=== PATIENT | female | born 1970 | race African-American/Black ===

== ENCOUNTER 2019-08-04 23:20 | Observation (INO) | payer OTHER ==
--- NOTE | 2019-08-04 23:40 | Emergency Department Report ---
<GRISELDA ARELLANO - Last Filed: 08/05/19 02:32> ED General Adult HPI - General Chief complaint: Neuro Symptoms/Deficit Stated complaint: HIGH BLOOD PRESSURE - Related Data Previous Rx's Medication Instructions Recorded Last Taken Type Aspirin [Adult Aspirin] 81 mg PO DAILY #30 tablet. 08/05/19 Unknown Rx AtorvaSTATin [Lipitor] 40 mg PO QHS #30 tablet 08/05/19 Unknown Rx Valsartan [Diovan] 40 mg PO DAILY #30 tablet 08/05/19 Unknown Rx hydroCHLOROthiazide [HCTZ] 25 mg PO QDAY #30 tablet 08/05/19 Unknown Rx Allergies Allergy/AdvReac Type Severity Reaction Status Date / Time No Known Allergies Allergy Unverified 08/04/19 23:39 ED Past Medical Hx - Medications Home Medications: Home Medications Medication Instructions Recorded Confirmed Last Taken Type Aspirin [Adult Aspirin] 81 mg PO DAILY #30 tablet. 08/05/19 Unknown Rx AtorvaSTATin [Lipitor] 40 mg PO QHS #30 tablet 08/05/19 Unknown Rx Valsartan [Diovan] 40 mg PO DAILY #30 tablet 08/05/19 Unknown Rx hydroCHLOROthiazide [HCTZ] 25 mg PO QDAY #30 tablet 08/05/19 Unknown Rx ED Medical Decision Making - Lab Data Result diagrams: 08/04/19 00:05 08/04/19 00:05 - Medical Decision Making I discussed the patient with Dr. Belcher, he agreed to admit the patient to medical service for further management. ED Disposition Clinical Impression: History of numbness, Acute chest pain, Hypertensive urgency Disposition: OP ADMIT IP TO THIS HOSP Condition: Stable <DOROTEO BRANHAM - Last Filed: 08/05/19 20:27> ED General Adult HPI - General PUI?: No Source: patient, family Mode of arrival: Ambulatory Limitations: Language Barrier - History of Present Illness Initial comments: The patient is a 49-year-old female. Her primary care doctor is Dr. Muro, with [facility]. She has a history of hypertension, and possible GERD/gastritis. Her daughter offers to translate, and the patient has indicated that she would like the daughter to translate for her. The patient presents to the ER today with a complaint of global weakness, central chest pain, upper extremity weakness, and body tingling and numbness. Apparently, she went to an outpatient urgent care center, and was referred to the emergency room for elevated blood pressure. Her last known well time is 5:00 PM on August 04, 2019 Upon arrival to this emergency room, she was being seen and evaluated by our triage nurse, who called a code stroke overhead, as the patient appeared to be globally weak, could not or would not lift her bilateral upper extremities, and required assistance holding a telephone. Her Accu-Chek was within normal limits. While in the waiting room/triage, her global weakness resolved, she was noted to be moving her 4 extremities, and walking without significant difficulty. The patient also complains of chest pressure, that started at 5:00 PM yesterday. As per her daughter translating, the pain does not radiate to the back, arms or neck. There is no description of vomiting or diaphoresis. Her daughter denies DVT and pulmonary embolism risk factors. -: hour(s) Location: chest Consistency: other Improves with: other Worsens with: other Associated Symptoms: other ED Review of Systems ROS: Stated complaint: HIGH BLOOD PRESSURE Other details as noted in HPI Constitutional: malaise. denies: fever Eyes: denies: vision change Respiratory: denies: cough Cardiovascular: chest pain Gastrointestinal: denies: abdominal pain Musculoskeletal: denies: back pain Neurological: weakness ED Physical Exam - General Limitations: Language Barrier General appearance: alert, in no apparent distress - Head Head exam: Present: atraumatic, normocephalic - Eye Eye exam: Present: normal appearance, EOMI. Absent: nystagmus - ENT ENT exam: Present: normal exam, normal orophraynx, mucous membranes moist, normal external ear exam - Neck Neck exam: Present: normal inspection, full ROM. Absent: tenderness, meningismus - Respiratory Respiratory exam: Present: normal lung sounds bilaterally. Absent: respiratory distress - Cardiovascular Cardiovascular Exam: Present: regular rate, normal rhythm, normal heart sounds. Absent: bradycardia, tachycardia, irregular rhythm, systolic murmur, diastolic murmur, rubs, gallop - GI/Abdominal GI/Abdominal exam: Present: soft, normal bowel sounds. Absent: distended, tend erness, guarding, rebound, rigid, pulsatile mass - Extremities Exam Extremities exam: Present: normal inspection, full ROM, other (2+ pulses noted in the bilateral upper and lower extremities. There is no palpable cord. negative Homans sign. Muscular compartments are soft. The pelvis is stable.). Absent: pedal edema, calf tenderness - Back Exam Back exam: Present: normal inspection, full ROM. Absent: tenderness, CVA tenderness (R), CVA tenderness (L), paraspinal tenderness, vertebral tenderness - Neurological Exam Neurological exam: Present: alert, normal gait, other (No facial droop. Tongue midline. Extraocular movements intact bilaterally. Facial sensation intact to light touch in V1, V2, V3 distribution bilaterally. 5 and a 5 strength in 4 extremities. Sensation intact to light touch in 4 extremities.). Absent: motor sensory deficit - Psychiatric Psychiatric exam: Present: anxious - Skin Skin exam: Present: warm, dry, intact, normal color. Absent: rash ED Course Vital Signs 08/04/19 08/04/19 08/05/19 23:22 23:58 00:00 Temperature 98.3 F Pulse Rate 84 87 Respiratory 18 20 16 Rate Blood Pressure 198/115 209/113 Blood Pressure [Left] O2 Sat by Pulse 98 99 Oximetry 08/05/19 08/05/19 08/05/19 00:10 00:11 00:20 Temperature 98.5 F Pulse Rate 86 79 Respiratory 20 23 Rate Blood Pressure 212/110 209/113 209/113 Blood Pressure [Left] O2 Sat by Pulse 99 99 100 Oximetry 08/05/19 08/05/19 08/05/19 01:11 01:21 01:53 Temperature Pulse Rate 74 Respiratory 14 18 12 Rate Blood Pressure 184/95 184/95 184/95 Blood Pressure [Left] O2 Sat by Pulse 98 100 99 Oximetry 08/05/19 08/05/19 08/05/19 02:00 02:11 02:27 Temperature Pulse Rate Respiratory 20 18 21 Rate Blood Pressure 184/110 209/113 184/110 Blood Pressure [Left] O2 Sat by Pulse 97 97 98 Oximetry 08/05/19 08/05/19 08/05/19 02:30 02:41 02:51 Temperature Pulse Rate Respiratory 19 21 18 Rate Blood Pressure 194/100 194/100 194/100 Blood Pressure [Left] O2 Sat by Pulse 99 99 100 Oximetry 08/05/19 08/05/19 08/05/19 03:00 03:11 03:29 Temperature 98.1 F Pulse Rate 84 Respiratory 20 27 H 18 Rate Blood Pressure 189/107 189/107 Blood Pressure 194/100 [Left] O2 Sat by Pulse 99 100 100 Oximetry - Reevaluation(s) Reevaluation #1: 08/05/19 00:34 Differential diagnosis, including but not limited to: Posterior reversible hypertensive encephalopathy, hypertensive emergency/emergency, subacute/acute stroke, TIA, aortic disease, acute coronary syndrome, pneumonia, GERD, gastritis, hiatal hernia Assessment and plan: 49-year-old female with nonspecific dysesthesia, total weakness, now resolved, GCS 15, NIH score of 0, presented more than 4.5 hours after symptom onset, therefore not a TPA candidate. NIH score of 0, therefore, not a TPA candidate. Her examination is not consistent with a large vessel occlusion. Given her complaint of nonspecific chest discomfort, an emergent CT angiogram head and neck has been ordered to exclude aortic dissection. If an aortic dissection is present, the CT angiogram neck should visualize the arch of the aorta, and demonstrates significant pathology if present. Laboratory studies ordered. EKG ordered. X-ray the chest ordered. Patient seen in conjunction with stroke neurology, Dr. Liriano, who has agreed with the aforementioned management plan, and makes similar recommendations. We think aortic dissection is unlikely at this time, there is no pulsatile abdominal mass, there is no complaint of back pain or abdominal pain, the patient has equal pulses in the upper and lower extremities. The patient does not have DVT or pulmonary embolism risk factors, she is low risk by Wells criteria. At the moment, she is perc negative Discussed plan of care with patient's daughter translating, who verbalizes understanding, she and the patient are amenable to this plan of care. Reevaluation #2: 08/05/19 01:03 X-ray the chest appears to be negative for acute disease at this time. Patient noted to be smiling and laughing with her daughter in the room Elevated TSH reviewed and appreciated. Will defer to the inpatient team to further follow this up Reevaluation #3: 08/05/19 01:38 Patient continues to rest comfortably, speaking in full sentences, walks with a steady gait, and move 4 extremities without difficulty. We requested a urine sample. The first urine sample provided was clear, and cold, suspicious for water from the tap. Went back into the room, and asked patient to provide a urine sample, and not of water sample. Then, the patient came back with a second sample, that was clear, but warm, suspicious for warm water from the tap. The patient has no CVA tenderness, and did not endorse irritative or obstructive urinary symptoms. With her nonspecific neurologic complaints and chest pain, I will defer to the inpatient team to further follow-up urinalysis, if they feel so necessary. CT angiogram head and neck pending at this time. care transferred to Dr Victorina Arellano to follow up on cta head neck, and if no acute disease noted, admit to medical service ED Medical Decision Making - Lab Data Result diagrams: 08/05/19 04:06 08/05/19 04:06 Vital Signs 08/04/19 08/05/19 23:22 00:10 Temperature 98.3 F 98.5 F Pulse Rate 84 86 Respiratory 18 20 Rate Blood Pressure 198/115 212/110 O2 Sat by Pulse 98 99 Oximetry Lab Results 08/04/19 08/04/19 08/05/19 Range/Units 00:05 00:05 00:07 WBC 13.4 H (4.5-11.0) K/mm3 RBC 4.78 (3.65-5.03) M/mm3 Hgb 13.4 (10.1-14.3) gm/dl Hct 41.1 (30.3-42.9) % MCV 86 (79-97) fl MCH 28 (28-32) pg MCHC 33 (30-34) % RDW 13.1 L (13.2-15.2) % Plt Count 296 (140-440) K/mm3 Lymph % (Auto) 16.9 (13.4-35.0) % Day % (Auto) 6.5 (0.0-7.3) % Eos % (Auto) 1.9 (0.0-4.3) % Baso % (Auto) 0.7 (0.0-1.8) % Lymph # 2.3 (1.2-5.4) K/mm3 Day # 0.9 H (0.0-0.8) K/mm3 Eos # 0.2 (0.0-0.4) K/mm3 Baso # 0.1 (0.0-0.1) K/mm3 Seg Neutrophils % 74.0 H (40.0-70.0) % Seg Neutrophils # 9.9 H (1.8-7.7) K/mm3 PT 12.3 (12.2-14.9) Sec. INR 0.90 (0.87-1.13) APTT 26.8 (24.2-36.6) Sec. Thrombin Time 14.8 L (15.1-19.6) Sec. POC Glucose 136 H (70-105) - EKG Data -: EKG Interpreted by Fl EKG shows normal: sinus rhythm Rate: normal - EKG Data When compared to previous EKG there are: previous EKG unavailable 08/05/19 01:20 Sinus rhythm, 76 bpm, normal axis, QTC is prolonged, low voltage in the inferior leads, the EKG is not a STEMI, the EKG is abnormal. - Radiology Data Radiology results: report reviewed, image reviewed : 1970 Acct:[id number] Age/Sex: 49 / F ADM Date: 08/04/19 Loc: ED Attending Dr: Ordering Physician: DOROTEO BRANHAM MD Date of Service: 08/04/19 Procedure(s): CT head/brain wo con Accession Number(s): [id number] cc: DOROTEO ENGEL MD Examination: CT of the head without contrast Clinical information: Stroke protocol evaluation. Comparison: None Technical: Multiple axial CT images of the head were obtained without intravenous contrast. Sagittal and coronal reformats were obtained. All CTs at this facility utilize dose reduction techniques including automated exposure control, iterative reconstruction and weight based dosing when appropriate to reduce patient radiation dose to as low as reasonable achievable. Findings: There is no CT evidence of acute intracranial hemorrhage or large territorial infarct. The ventricular system is normal in size. There is no evidence of mass effect or midline shift. No extra- axial fluid collections are identified. Evaluation of bony structures demonstrates no evidence of acute bony abnormality. There is mild mucosal thickening of the ethmoid air cells. Impression: 1. No definitive CT evidence of acute intracranial process. If there is persistent clinical concern for stroke, then MRI of the brain is suggested. This study was designated as a code stroke protocol and findings were personally communicated to Dr. Branham in the Emergency Department at 11:10 PM Central time. Signer Name: Natalia Qureshi MD Signed: 08/05/2019 12:12 AM Workstation Name: [id number] Transcribed By: ERNESTINE Dictated By: Natalia Qureshi MD Electronically Authenticated By: Natalia Qureshi MD Signed Date/Time: 08/05/1911 DD/ 000 TD/TT: Critical care attestation.: If time is entered above; I have spent that time in minutes in the direct care of this critically ill patient, excluding procedure time. ED Disposition Is pt being admited?: Yes Does the pt Need Aspirin: Yes
[2019-08-05] MEDS ORDERED: FAMOTIDINE 20 MG TAB PO ONE (00:02)
[2019-08-05] MEDS ORDERED: SODIUM CHLORIDE 0.9% 500 ML 500 ML IV ONE (00:02)
[2019-08-05 00:15] LABS: Basophils # (Auto) 0.1 K/mm3 (0.0-0.1); Basophils % (Auto) 0.7 % (0.0-1.8); Eosinophils # (Auto) 0.2 K/mm3 (0.0-0.4); Eosinophils % (Auto) 1.9 % (0.0-4.3); Hematocrit 41.1 % (30.3-42.9); Hemoglobin 13.4 gm/dl (10.1-14.3); Lymphocytes # (Auto) 2.3 K/mm3 (1.2-5.4); Lymphocytes % (Auto) 16.9 % (13.4-35.0); Mean Corpuscular HGB Conc 33 % (30-34); Mean Corpuscular Volume 86 fl (79-97); Monocytes # (Auto) 0.9 K/mm3 (0.0-0.8); Monocytes % (Auto) 6.5 % (0.0-7.3); Platelet Count 296 K/mm3 (140-440); Red Blood Count 4.78 M/mm3 (3.65-5.03); Red Cell Distribution Width 13.1 % (13.2-15.2)
--- NOTE | 2019-08-05 00:16 | Cat Scan Report ---
Examination: CT of the head without contrast Clinical information: Stroke protocol evaluation. Comparison: None Technical: Multiple axial CT images of the head were obtained without intravenous contrast. Sagittal and coronal reformats were obtained. All CTs at this facility utilize dose reduction techniques inc luding automated exposure control, iterative reconstruction and weight based dosing when appropriate to reduce patient radiation dose to as low as reasonable achievable. Findings: There is no CT evidence of acute intracranial hemorrhage or large territorial infarct. The ventricular system is normal in size. There is no evidence of mass effect or midline shift. No extra- axial fluid collections are identified. Evaluation of bony structures demonstrates no evidence of acute bony abnormality. There is mild mucos al thickening of the ethmoid air cells. Impression: 1. No definitive CT evidence of acute intracranial process. If there is persistent clinical concern for stroke, then MRI of the brain is suggested. This study was designated as a code stroke protocol and findings were personally communicated to Dr. Branham in the Emergency Department at 11:10 PM Central time. Signer Name: Natalia Qureshi MD Signed: 08/05/2019 12:12 AM Workstation Name: [id number]
[2019-08-05 00:29] LABS: INR 0.9 (0.87-1.13)
[2019-08-05 00:30] LABS: Partial Thromboplastin Time 26.8 Sec. (24.2-36.6); Thrombin Time 14.8 Sec. (15.1-19.6)
[2019-08-05 00:35] LABS: Creatine Kinase MB 2.7 ng/mL (0.0-4.0)
[2019-08-05 00:37] LABS: Alanine Aminotransferase 12 units/L (7-56); Albumin 4.4 g/dL (3.9-5); BUN/Creatinine Ratio 14; Blood Urea Nitrogen 11 mg/dL (7-17); Calcium 9.1 mg/dL (8.4-10.2); Hemolysis Index 45
--- NOTE | 2019-08-05 01:10 | XRay Report ---
CHEST 1 VIEW, 08/05/2019 1:00 AM CLINICAL INFORMATION/INDICATION: Chest pain COMPARISON: None FINDINGS: SUPPORT DEVICES: None. HEART: The cardiac silhouette is normal in size. LUNGS/PLEURA: The lungs are clear of focal airspace disease or significant pleural effusion. ADDITIONAL FINDINGS: No additional acute findings. IMPRESSION: 1. No evidence of acute cardiopulmonary process. Signer Name: Natalia Qureshi MD Signed: 08/05/2019 1:06 AM Workstation Name: [id number]
--- NOTE | 2019-08-05 01:42 | Emergency Department Report ---
HPI - General Chief Complaint: Neuro Symptoms/Deficit PUI?: No Time Seen by Provider: 08/04/19 23:40 - HPI HPI: [facility] Date of Service: 08/04/2019 23:39:51 Impression: Rule Out Acute Ischemic Stroke Comments/Sign-Out: The patient was last normal close to 5:00 pm. She was having chest pain. Recommend CTA head/neck - CTA chest - rule out dissection. Per protocol at [facility], [facility]1983 they do not do cta chest, and focus on ascending aorta with cta head neck. there was no indication for neuro IR. CTA head/enck was negatigve. Allow permissive htn until stroke ruled out. Mechanism of Stroke: Possible Thromboembolic Metrics: Last Known Well: 08/04/2019 17:00:00 [facility] Notification Time: 08/04/2019 23:39:02 Arrival Time: 08/04/2019 23:35:59 Stamp Time: 08/04/2019 23:39:51 Time First Login Attempt: 08/04/2019 23:43:23 Video Start Time: 08/04/2019 23:43:23 Symptoms: patient felt numbness, chest pain @ 5 pm NIHSS Start Assessment Time: 08/04/2019 23:52:00 Patient is not a candidate for tPA. Patient was not deemed candidate for tPA thrombolytics because of Last Well Known Above 4.5 Hours. Video End Time: 08/04/2019 01:04:00 CT head showed no acute hemorrhage or acute core infarct. Clinical Presentation is Suggestive of Large Vessel Occlusive Disease, Recommendations are as Follows Reviewed, No Indication of Large Vessel Occlusive Thrombus, Patient is not an KRISTEL Candidate. ED Physician notified of diagnostic impression and management plan on 08/05/2019 01:43:28 Our recommendations are outlined below. Recommendations: Activate Stroke Protocol Admission/Order Set Stroke/Telemetry Floor Neuro Checks Bedside Swallow Eval DVT Prophylaxis IV Fluids, Normal Saline Head of Bed 30 Degrees Euglycemia and Avoid Hyperthermia (PRN Acetaminophen) Antiplatelet Therapy Recommended Sign Out: Discussed with Emergency Department Provider History of Present Illness: Patient is a 49 year old Female. Patient was brought by EMS for symptoms of patient felt numbness, chest pain @ 5 pm Pt started to have chest pain, she has been off of work, and she is a electroplating technician. At 5:00 pm she started to feel chest pain and numbness to the left side. Since then she has not felt normal. She does not take blood thinners. She has Htn, hld and gastritis. I looked at the CTA head/neck daily. Last seen normal was beyond 4.5 hours of presentation. Examination: 1A: Level of Consciousness - Alert; keenly responsive + 0 1B: Ask Month and Age - Both Questions Right + 0 1C: Blink Eyes & Squeeze Hands - Performs Both Tasks + 0 2: Test Horizontal Extraocular Movements - Normal + 0 3: Test Visual Landin - No Visual Loss + 0 4: Test Facial Palsy (Use Grimace if Obtunded) - Normal symmetry + 0 5A: Test Left Arm Motor Drift - No Drift for 10 Seconds + 0 5B: Test Right Arm Motor Drift - No Drift for 10 Seconds + 0 6A: Test Left Leg Motor Drift - No Drift for 5 Seconds + 0 6B: Test Right Leg Motor Drift - No Drift for 5 Seconds + 0 7: Test Limb Ataxia (FNF/Heel-Boyd) - No Ataxia + 0 8: Test Sensation - Normal; No sensory loss + 0 9: Test Language/Aphasia - Normal; No aphasia + 0 10: Test Dysarthria - Normal + 0 11: Test Extinction/Inattention - No abnormality + 0 NIHSS Score: 0 Due to the immediate potential for life-threatening deterioration due to underlying acute neurologic illness, I spent 35 minutes providing critical care. This time includes time for face to face visit via telemedicine, review of medical records, imaging studies and discussion of findings with providers, the patient and/or family. Dr Jaren Liriano [facility] Case [id number] ED Past Medical Hx - Past Medical History Previous Medical History?: Yes Hx Hypertension: Yes - Surgical History Past Surgical History?: No - Social History Smoking Status: Never Smoker ED Review of Systems ROS: Stated complaint: HIGH BLOOD PRESSURE Other details as noted in HPI Comment: All other systems reviewed and negative Constitutional: malaise. denies: fever Eyes: denies: vision change Respiratory: denies: cough Cardiovascular: chest pain Gastrointestinal: denies: abdominal pain Musculoskeletal: denies: back pain Neurological: weakness Physical Exam - Physical Exam Vital Signs: Vital Signs 08/04/19 08/05/19 23:22 00:10 Temperature 98.3 F 98.5 F Pulse Rate 84 86 Respiratory 18 20 Rate Blood Pressure 198/115 212/110 O2 Sat by Pulse 98 99 Oximetry ED Course Vital Signs 08/04/19 08/05/19 23:22 00:10 Temperature 98.3 F 98.5 F Pulse Rate 84 86 Respiratory 18 20 Rate Blood Pressure 198/115 212/110 O2 Sat by Pulse 98 99 Oximetry ED Medical Decision Making - Lab Data Result diagrams: 08/04/19 00:05 08/04/19 00:05 Critical care attestation.: If time is entered above; I have spent that time in minutes in the direct care of this critically ill patient, excluding procedure time. ED Disposition Clinical Impression: Acute chest pain, History of numbness, Hypertensive urgency Disposition: OP ADMIT IP TO THIS HOSP Is pt being admited?: Yes Condition: Good Instructions: Chest Pain (ED) Referrals: PRIMARY CARE, [Primary Care Provider] - 3-5 Days
--- NOTE | 2019-08-05 01:43 | Cat Scan Report ---
CTA neck with and without contrast CLINICAL HISTORY: Hypertension, cerebrovascular accident. Technique: Multiple contiguous postcontrast axial CT images of the neck were obtained at 0.63 mm inte rvals. 3 plane MIP reconstructions were produced. Precontrast localizing images were also performed. All CT scans at this location are performed using the CT dose reduction for ALARA by means of automat ed exposure control. FINDINGS: No previous exams available for comparison. There appears be minimal atherosclerotic plaque along the posterior proximal right ICA. However, there is no significant stenosis involving the rowell tid arteries bilaterally by NASCET criteria. The proximal right vertebral artery is obscured by the dense contrast within the adjacent venous stru ctures. However, there is no clear CTA evidence of significant narrowing involving the vertebral woody leoncio. There is a small focus of calcification involving the origin of the left subclavian artery at. There is no significant stenosis of the arch vessels. IMPRESSION: There is no significant stenosis involving cervical carotid or vertebral arteries by NASCET criteria. Signer Name: Chan Gauthier MD Signed: 08/05/2019 1:39 AM Workstation Name: [id number]
--- NOTE | 2019-08-05 01:51 | Cat Scan Report ---
CTA head with and without IV contrast. CLINICAL HISTORY: Hypertension, cerebrovascular accident. Technique: Multiple contiguous postcontrast CT images of the head were obtained at 0.63 mm intervals. 3 plane MIP reconstructions were obtained. Precontrast localizing images were also performed. CT scan s at this location are performed using the CT dose reduction for ALAFeZo by means of automated exposure control. FINDINGS: There are foci of calcification involving distal internal carotid arteries without CTA evid ence of significant stenosis by NASCET criteria. There is no focal narrowing involving the vertebral basilar system. There is irregularity involving distal M1 segment of the right MCA is approximately a 6 mm with moder ate degree of stenosis at. This finding may reflect atherosclerotic disease. There is no further at C TA evidence of significant stenosis involving cerebral arteries or evidence of large vessel occlusion . There is no CTA evidence of intracranial aneurysm. The dural venous sinuses opacify with contrast. IMPRESSION: There is moderate to stenosis involving the M1 segment of the right MCA as detailed above. There is mild calcification involving distal internal carotid arteries without evidence of significan t stenosis by NASCET criteria. Signer Name: Chan Gauthier MD Signed: 08/05/2019 1:46 AM Workstation Name: [id number]
[2019-08-05] MEDS ORDERED: NITROGLYCERIN 0.4 MG TAB SUBL SL PRN (02:52)
[2019-08-05] MEDS ORDERED: hydrALAZINE 20 MG/1 ML INJ IV PRN ×2 (02:52→10:21)
[2019-08-05] MEDS ORDERED: ONDANSETRON 4 MG/2 ML INJ IV PRN ×2 (02:52)
[2019-08-05] MEDS ORDERED: ACETAMINOPHEN 325 MG TAB PO PRN ×2 (02:52)
[2019-08-05] MEDS ORDERED: MAGNESIUM HYDROXIDE (MOM) ORAL LIQD UDC PO PRN ×2 (02:52)
[2019-08-05] MEDS ORDERED: PROMETHAZINE 25 MG RECT SUPP PR PRN (02:52)
[2019-08-05] MEDS ORDERED: METOCLOPRAMIDE 10 MG TAB PO PRN (02:52)
[2019-08-05 03:37] LABS: Bilirubin,Urine NEG (Negative); Blood,Urine MOD (Negative); Color,Urine Colorless (Yellow); Protein,Urine <15 mg/dL mg/dL (Negative); Urobilinogen,Urine < 2.0 mg/dL (<2.0)
[2019-08-05 03:45] LABS: Amphetamine Screen,Urine PRESUMPTIVE NEGATIVE; Benzodiazepines Screen,Urine PRESUMPTIVE NEGATIVE; Cannabinoid Screen,Urine PRESUMPTIVE NEGATIVE; Cocaine Screen,Urine PRESUMPTIVE NEGATIVE; Methadone Screen,Urine PRESUMPTIVE NEGATIVE; Opiate Screen,Urine PRESUMPTIVE NEGATIVE
--- NOTE | 2019-08-05 04:00 | History and Physical Report ---
History of Present Illness Date of examination: 08/05/19 Date of admission: 08/05/19 02:33 Chief complaint: Generalized weakness Chest Pain History of present illness: 49-year-old female with known history of hypertension and GERD presenting to the emergency room today complaining of generalized weakness and chest pain. Generalized weakness is more in the upper extremities, she has also been having some tingling and numbness. He had gone to an urgent care facility and was referred to the emergency room for evaluation because her blood pressure was quite elevated. Upon arrival here in the emergency room she was found to be globally weak and could not lift her extremities and also required assistance holding a phone. Her weakness was said to have improved gradually while in the emergency room and was able to walk without any significant difficulty. There has been no history of fall and no history of syncopal episode. Patient denies any fever or chills, no nausea vomiting, no shortness of breath, no hematuria or dysuria. She has been having chest pain in the midsternal area with some associated left shoulder pain. Patient was evaluated by the teleneurologist. Work-up so far has been unremarkable. CTA reveals atherosclerotic disease. Patient is to have full work- up for CVA and a chest pain. Neurologist also recommends permissive hypertension. Past History Past Medical History: GERD, hypertension Past Surgical History: No surgical history Social history: no significant social history Family history: no significant family history Medications and Allergies Allergies Allergy/AdvReac Type Severity Reaction Status Date / Time No Known Allergies Allergy Unverified 08/04/19 23:39 Home Medications Medication Instructions Recorded Confirmed Last Taken Type Aspirin [Adult Aspirin] 81 mg PO DAILY #30 tablet. 08/05/19 Unknown Rx AtorvaSTATin [Lipitor] 40 mg PO QHS #30 tablet 08/05/19 Unknown Rx Valsartan [Diovan] 40 mg PO DAILY #30 tablet 08/05/19 Unknown Rx hydroCHLOROthiazide [HCTZ] 25 mg PO QDAY #30 tablet 08/05/19 Unknown Rx Active Meds: Active Medications Acetaminophen (Tylenol) 650 mg PO Q4H PRN PRN Reason: Pain MILD(1-3)/Fever >100.5/JIANG Aspirin (Ecotrin) 325 mg PO QDAY BRIAN Bisacodyl (Dulcolax) 10 mg MO QDAY PRN PRN Reason: Constipation Hydralazine HCl (Apresoline) 10 mg IV Q6H PRN PRN Reason: FOR SBP > target Magnesium Hydroxide (Milk Of Magnesia) 30 ml PO Q4H PRN PRN Reason: Constipation Metoclopramide HCl (Reglan) 10 mg PO Q6H PRN PRN Reason: Nausea And Vomiting Morphine Sulfate (Morphine) 2 mg IV Q4H PRN PRN Reason: Pain, Moderate (4-6) Nitroglycerin (Nitrostat) 0.4 mg SL Q5M PRN PRN Reason: Chest Pain Ondansetron HCl (Zofran) 4 mg IV Q8H PRN PRN Reason: Nausea And Vomiting Promethazine HCl (Phenergan) 25 mg MO Q6H PRN PRN Reason: Nausea And Vomiting Sodium Chloride (Sodium Chloride Flush Syringe 10 Ml) 10 ml IV BID BRIAN Sodium Chloride (Sodium Chloride Flush Syringe 10 Ml) 10 ml IV PRN PRN PRN Reason: LINE FLUSH Review of Systems Constitutional: weakness, no fever, no chills Cardiovascular: chest pain, no palpitations, no syncope Respiratory: no cough, no shortness of breath Gastrointestinal: no abdominal pain, no nausea, no vomiting, no diarrhea Genitourinary Female: no pelvic pain, no flank pain, no dysuria, no hematuria Musculoskeletal: no neck stiffness, no neck pain, no low back pain Integumentary: no rash, no pruritis Neurological: weakness, numbness, tingling, headaches, no change in speech, no confusion Exam - Constitutional Vitals: Temp Pulse Resp BP Pulse Ox 98.1 F 84 18 194/100 100 08/05/19 03:29 08/05/19 03:29 08/05/19 03:29 08/05/19 03:29 08/05/19 03:29 General appearance: Present: no acute distress, well-nourished - EENT Eyes: Present: PERRL, EOM intact ENT: hearing intact, clear oral mucosa, dentition normal - Neck Neck: Present: supple, normal ROM - Respiratory Respiratory effort: normal Respiratory: bilateral: CTA - Cardiovascular Rhythm: regular Heart Sounds: Present: S1 & S2 - Extremities Extremities: no ischemia, pulses intact, pulses symmetrical, No edema, Full ROM Peripheral Pulses: within normal limits - Abdominal General gastrointestinal: Present: soft, non-tender, non-distended, normal bowel sounds - Integumentary Integumentary: Present: clear, warm, dry - Musculoskeletal Musculoskeletal: strength equal bilaterally - Psychiatric Psychiatric: appropriate mood/affect, intact judgment & insight - Neurologic Neurologic: CNII-XII intact, moves all extremities HEART Score - HEART Score Troponin: Troponin T < 0.010 ng/mL (0.00-0.029) 08/04/19 00:05 Results - Labs CBC & Chem 7: 08/05/19 04:06 08/05/19 04:06 Labs: Abnormal lab results 08/04/19 08/04/19 08/04/19 Range/Units 00:05 00:05 00:05 WBC 13.4 H (4.5-11.0) K/mm3 RDW 13.1 L (13.2-15.2) % [place] # 0.9 H (0.0-0.8) K/mm3 Seg Neutrophils % 74.0 H (40.0-70.0) % Seg Neutrophils # 9.9 H (1.8-7.7) K/mm3 Thrombin Time 14.8 L (15.1-19.6) Sec. Potassium 3.5 L (3.6-5.0) mmol/L Glucose 137 H (65-100) mg/dL POC Glucose (70-105) Magnesium 2.40 H (1.7-2.3) mg/dL Total Creatine Kinase 174 H (30-135) units/L Total Protein 8.4 H (6.3-8.2) g/dL TSH (0.270-4.200) mlU/mL Salicylates (2.8-20.0) mg/dL Acetaminophen (10.0-30.0) ug/mL 08/04/19 08/04/19 08/04/19 Range/Units 00:05 00:05 00:05 WBC (4.5-11.0) K/mm3 RDW (13.2-15.2) % [place] # (0.0-0.8) K/mm3 Seg Neutrophils % (40.0-70.0) % Seg Neutrophils # (1.8-7.7) K/mm3 Thrombin Time (15.1-19.6) Sec. Potassium (3.6-5.0) mmol/L Glucose (65-100) mg/dL POC Glucose (70-105) Magnesium (1.7-2.3) mg/dL Total Creatine Kinase (30-135) units/L Total Protein (6.3-8.2) g/dL TSH 6.220 H (0.270-4.200) mlU/mL Salicylates < 0.3 L (2.8-20.0) mg/dL Acetaminophen < 5.0 L (10.0-30.0) ug/mL 08/05/19 Range/Units 00:07 WBC (4.5-11.0) K/mm3 RDW (13.2-15.2) % [place] # (0.0-0.8) K/mm3 Seg Neutrophils % (40.0-70.0) % Seg Neutrophils # (1.8-7.7) K/mm3 Thrombin Time (15.1-19.6) Sec. Potassium (3.6-5.0) mmol/L Glucose (65-100) mg/dL POC Glucose 136 H (70-105) Magnesium (1.7-2.3) mg/dL Total Creatine Kinase (30-135) units/L Total Protein (6.3-8.2) g/dL TSH (0.270-4.200) mlU/mL Salicylates (2.8-20.0) mg/dL Acetaminophen (10.0-30.0) ug/mL Assessment and Plan - Patient Problems (1) History of numbness Status: Acute Plan to address problem: We will rule out CVA Will monitor neurological status. Patient started on daily aspirin We will schedule for carotid Doppler and MRI of the brain Will request neurology evaluation and recommendation. (2) Acute chest pain Status: Acute Plan to address problem: We will check serial cardiac enzymes. We will also monitor EKG. Schedule evaluation by cone treater Scheduled for echocardiogram and stress test. (3) Hypertensive urgency Status: Resolved Plan to address problem: We will resume routine home medications and monitor vital signs closely. (4) DVT prophylaxis Status: Acute Plan to address problem: Patient placed on subcutaneous heparin. (5) Full code status Status: Acute
[2019-08-05] MEDS: MORPHINE 2 MG/1 ML INJ IV PRN ×2 (04:26→09:39)
[2019-08-05 04:39] LABS: Basophils % (Auto) 1.1 % (0.0-1.8); Eosinophils % (Auto) 1.3 % (0.0-4.3); Lymphocytes % (Auto) 22.4 % (13.4-35.0); Monocytes % (Auto) 6.7 % (0.0-7.3)
[2019-08-05 04:56] LABS: BUN/Creatinine Ratio 11; Blood Urea Nitrogen 9 mg/dL (7-17); Calcium 9.1 mg/dL (8.4-10.2); Hemolysis Index 10
[2019-08-05 04:57] LABS: Basophils # (Auto) 0.2 K/mm3 (0.0-0.1); Eosinophils # (Auto) 0.2 K/mm3 (0.0-0.4); Hematocrit 41.6 % (30.3-42.9); Lymphocytes # (Auto) 2.8 K/mm3 (1.2-5.4); Mean Corpuscular HGB Conc 34 % (30-34); Mean Corpuscular Volume 87 fl (79-97); Monocytes # (Auto) 0.9 K/mm3 (0.0-0.8); Platelet Count 314 K/mm3 (140-440); Red Cell Distribution Width 13.2 % (13.2-15.2)
[2019-08-05] MEDS: HEPARIN 5,000 UNIT/1 ML VIAL SUB-Q SCH ×2 (05:59→17:57)
[2019-08-05] MEDS ORDERED: REGADENOSON 0.4 MG/5 ML INJ IV ONE (07:11)
--- NOTE | 2019-08-05 09:21 | History and Physical Report ---
History of Present Illness Date of examination: 08/05/19 Date of admission: 08/05/19 02:33 Chief complaint: Generalized weakness and CP History of present illness: Pt. complained of CP early this am associted with generalized weakness she presented to ER [facility] NIH is #0 Ct/CTA brain and carotids are remarkable for possible stenosis of M1 segment of right MCA, and mild atherosclerosis in distal ICAs UDS is negative CPK is 174 troponin first set is negative Initial BP was 209/115 MRI/MRA are remarkable for distal right MCA stenosis Echo showed EF 55-60% cardiac scan is pending she was started on asa 325 Lipitor 40 mg and control BP LDL #153 Past History Past Medical History: GERD, hypertension Past Surgical History: No surgical history Social history: no significant social history Family history: no significant family history Medications and Allergies Allergies Allergy/AdvReac Type Severity Reaction Status Date / Time No Known Allergies Allergy Unverified 08/04/19 23:39 Home Medications Medication Instructions Recorded Confirmed Last Taken Type Aspirin [Adult Aspirin] 81 mg PO DAILY #30 tablet. 08/05/19 Unknown Rx AtorvaSTATin [Lipitor] 40 mg PO QHS #30 tablet 08/05/19 Unknown Rx Valsartan [Diovan] 40 mg PO DAILY #30 tablet 08/05/19 Unknown Rx hydroCHLOROthiazide [HCTZ] 25 mg PO QDAY #30 tablet 08/05/19 Unknown Rx Active Meds: Active Medications Acetaminophen (Tylenol) 650 mg PO Q4H PRN PRN Reason: Pain MILD(1-3)/Fever >100.5/JIANG Aspirin (Ecotrin) 325 mg PO QDAY BRIAN Bisacodyl (Dulcolax) 10 mg ME QDAY PRN PRN Reason: Constipation Heparin Sodium (Porcine) (Heparin) 5,000 unit SUB-Q Q8HR [facility] Last Admin: 08/05/19 05:59 Dose: 5,000 unit Documented by: Hydralazine HCl (Apresoline) 10 mg IV Q6H PRN PRN Reason: FOR SBP > target Last Admin: 08/05/19 06:24 Dose: 10 mg Documented by: Magnesium Hydroxide (Milk Of Magnesia) 30 ml PO Q4H PRN PRN Reason: Constipation Metoclopramide HCl (Reglan) 10 mg PO Q6H PRN PRN Reason: Nausea And Vomiting Morphine Sulfate (Morphine) 2 mg IV Q4H PRN PRN Reason: Pain, Moderate (4-6) Last Admin: 08/05/19 04:26 Dose: 2 mg Documented by: Nitroglycerin (Nitrostat) 0.4 mg SL Q5M PRN PRN Reason: Chest Pain Ondansetron HCl (Zofran) 4 mg IV Q8H PRN PRN Reason: Nausea And Vomiting Promethazine HCl (Phenergan) 25 mg ME Q6H PRN PRN Reason: Nausea And Vomiting Sodium Chloride (Sodium Chloride Flush Syringe 10 Ml) 10 ml IV BID BRIAN Sodium Chloride (Sodium Chloride Flush Syringe 10 Ml) 10 ml IV PRN PRN PRN Reason: LINE FLUSH Review of Systems ROS unobtainable: due to mental status All systems: negative Physical Examination - Vital Signs Vital Signs: Vital Signs Temp Pulse Resp BP Pulse Ox 98.3 F 84 18 198/115 98 08/04/19 23:22 08/04/19 23:22 08/04/19 23:22 08/04/19 23:22 08/04/19 23:22 - Constitutional General appearance: comfortable - EENT EENT: Present: PERRL, mucous membranes moist - Cardiovascular Cardiovascular: Present: regular rate Extremities: Present: no peripheral edema bilatateraly - Integumentary Integumentary: Present: normal - Neurologic Cranial nerve examination: intact Speech examination: intact Sensorimotor examination: intact Detailed motor examination: grossly full strength in Results - Laboratory Findings CBC and BMP: 08/05/19 04:06 08/05/19 04:06 Abnormal Lab Findings: Abnormal Labs 08/04/19 08/04/19 08/04/19 00:05 00:05 00:05 WBC 13.4 H RDW 13.1 L [place] # 0.9 H Baso # Seg Neutrophils % 74.0 H Seg Neutrophils # 9.9 H Thrombin Time 14.8 L Potassium 3.5 L Chloride Glucose 137 H POC Glucose Magnesium 2.40 H Total Creatine Kinase 174 H Total Protein 8.4 H TSH Salicylates Acetaminophen 08/04/19 08/04/19 08/04/19 00:05 00:05 00:05 WBC RDW [place] # Baso # Seg Neutrophils % Seg Neutrophils # Thrombin Time Potassium Chloride Glucose POC Glucose Magnesium Total Creatine Kinase Total Protein TSH 6.220 H Salicylates < 0.3 L Acetaminophen < 5.0 L 08/05/19 08/05/19 08/05/19 00:07 04:06 04:06 WBC 12.8 H RDW [place] # 0.9 H Baso # 0.2 H Seg Neutrophils % Seg Neutrophils # 8.8 H Thrombin Time Potassium 3.3 L Chloride 97.0 L Glucose 123 H POC Glucose 136 H Magnesium Total Creatine Kinase Total Protein TSH Salicylates Acetaminophen Assessment and Plan 1-This is 49 ys old femal presented early this am with complain of generalized weakness and non specific CP in ER vital are remarkable for BP 209/115 ,NIH is #0 ? hypertensive emergency. CT/CTA are remarkable for mild intracranial stenosis and calcification right MCA distally. MRI/MRA confirm above no acute CVA is noted labs are remarkable for LDL#153 2- Hx of HTN poorly controlled 3- Non specific chest pain with cardiac enzymes, Echo #55-60% and cardiac scan is pending PLAN 1- Better control HTN 2- ASA 81 mg daily 3- [id number] mg daily 4-Follow up cardiac work up 5- DVT precaution follow up with PCP/Cardiology as needed
[2019-08-05] MEDS ORDERED: ASPIRIN 325 MG TAB PO SCH (10:00)
--- NOTE | 2019-08-05 10:28 | Consultation ---
History of Present Illness Consult date: 08/05/19 Requesting physician: NICOLAS ELLINGTON Consult reason: chest pain History of present illness: Pt is a 49 y.o. Citizen Of [place] female with a past medical hx of HTN and GERD. She is previously unknown to our practice. Pt sent to [facility] from Urgent Care yesterday with generalized weakness, BUE weakness and numbness/tingling, and chest pain. Head CT/CTA unremarkable. Upon eval this AM, I spoke with pt's daughter Juani via phone ([phone]) for interpretation. Pt reports constant "stabbing" substernal chest pain that started yesterday evening. She endorses radiation to arms and neck. Pain not worsened by exertion or inspiration. Pt attributes chest pain to her BP being elevated, which she reports happens occasionally at home. SBP 190-210s upon admission. Relief noted when BP decreased with IV Hydralazine. Pt denies palpitations, diaphoresis, dizziness, lightheadedness, syncope, SOB, cough, edema, orthopnea/PND, claudication, N/V, and fever/chills. Trop negative x 2. No acute ischemic changes on ECG. CXR reveals no acute findings. Past History Past Medical History: GERD, hypertension Past Surgical History: No surgical history Social history: no significant social history Family history: no significant family history Medications and Allergies Allergies Allergy/AdvReac Type Severity Reaction Status Date / Time No Known Allergies Allergy Unverified 08/04/19 23:39 Home Medications Medication Instructions Recorded Confirmed Last Taken Type Aspirin [Adult Aspirin] 81 mg PO DAILY #30 tablet. 08/05/19 Unknown Rx AtorvaSTATin [Lipitor] 40 mg PO QHS #30 tablet 08/05/19 Unknown Rx Valsartan [Diovan] 40 mg PO DAILY #30 tablet 08/05/19 Unknown Rx hydroCHLOROthiazide [HCTZ] 25 mg PO QDAY #30 tablet 08/05/19 Unknown Rx Active Meds: Active Medications Acetaminophen (Tylenol) 650 mg PO Q4H PRN PRN Reason: Pain MILD(1-3)/Fever >100.5/JIANG Aspirin (Ecotrin) 325 mg PO QDAY BRIAN Bisacodyl (Dulcolax) 10 mg ND QDAY PRN PRN Reason: Constipation Heparin Sodium (Porcine) (Heparin) 5,000 unit SUB-Q Q8HR BRIAN Last Admin: 08/05/19 05:59 Dose: 5,000 unit Documented by: Hydralazine HCl (Apresoline) 5 mg IV Q6HR PRN PRN Reason: HTN SBP>170 Magnesium Hydroxide (Milk Of Magnesia) 30 ml PO Q4H PRN PRN Reason: Constipation Metoclopramide HCl (Reglan) 10 mg PO Q6H PRN PRN Reason: Nausea And Vomiting Morphine Sulfate (Morphine) 2 mg IV Q4H PRN PRN Reason: Pain, Moderate (4-6) Last Admin: 08/05/19 09:39 Dose: 2 mg Documented by: Nitroglycerin (Nitrostat) 0.4 mg SL Q5M PRN PRN Reason: Chest Pain Ondansetron HCl (Zofran) 4 mg IV Q8H PRN PRN Reason: Nausea And Vomiting Potassium Chloride (K-Dur) 40 meq PO ONCE ONE Stop: 08/05/19 11:01 Promethazine HCl (Phenergan) 25 mg ND Q6H PRN PRN Reason: Nausea And Vomiting Sodium Chloride (Sodium Chloride Flush Syringe 10 Ml) 10 ml IV BID [facility] Last Admin: 08/05/19 09:39 Dose: 10 ml Documented by: Sodium Chloride (Sodium Chloride Flush Syringe 10 Ml) 10 ml IV PRN PRN PRN Reason: LINE FLUSH Review of Systems Constitutional: weakness, no fever, no chills, no sweats Ears, nose, mouth and throat: no tinnitis, no nasal congestion, no dysphagia, no sore throat Cardiovascular: chest pain, no orthopnea, no palpitations, no edema, no lightheadedness, no paroxysmal nocturnal dyspnea, no claudication Respiratory: no cough, no shortness of breath, no dyspnea on exertion, no wheezing Gastrointestinal: no abdominal pain, no nausea, no vomiting, no diarrhea, no constipation Genitourinary Female: no pelvic pain, no flank pain, no dysuria Musculoskeletal: arm numbness/tingling, no neck stiffness, no neck pain Integumentary: no rash, no wounds Neurological: weakness, numbness, tingling, no head injury, no paralysis, no seizures, no syncope, no vertigo, no headaches, no change in mentation Endocrine: no cold intolerance, no heat intolerance, no polydipsia, no polyuria Hematologic/Lymphatic: no easy bruising, no easy bleeding Allergic/Immunologic: no urticaria Physical Examination Last Vital Signs Temp 98.0 F 08/05/19 07:08 Pulse 64 08/05/19 07:08 Resp 20 08/05/19 07:08 BP 132/74 08/05/19 09:24 Pulse Ox 98 08/05/19 07:55 General appearance: no acute distress HEENT: Positive: EOMI, Normocephaly, Mucus Membranes Moist Neck: Positive: neck supple, trachea midline. Negative: JVD/HJR Cardiac: Positive: Reg Rate and Rhythm, S1/S2 Lungs: Positive: clear to auscultation (bilaterally) Neuro: Positive: Grossly Intact, Motor Function Intact, Numbness (BUE), Weak ness, Tingling (BUE). Negative: Sensory Function Intact Abdomen: Positive: Soft, Active Bowel Sounds. Negative: Tender, Distended Skin: Negative: Rash, Wound Musculoskeletal: No Pain Extremities: Present: upper extr. pulses, lower extr. pulses. Absent: edema Results 08/05/19 04:06 08/05/19 04:06 Cardiac Enzymes 08/04/19 Range/Units 00:05 AST 22 (5-40) units/L CK-MB (CK-2) 2.7 (0.0-4.0) ng/mL Coagulation 08/04/19 Range/Units 00:05 PT 12.3 (12.2-14.9) Sec. INR 0.90 (0.87-1.13) APTT 26.8 (24.2-36.6) Sec. CBC 08/04/19 08/05/19 Range/Units 00:05 04:06 WBC 13.4 H 12.8 H (4.5-11.0) K/mm3 RBC 4.78 4.80 (3.65-5.03) M/mm3 Hgb 13.4 14.0 (10.1-14.3) gm/dl Hct 41.1 41.6 (30.3-42.9) % Plt Count 296 314 (140-440) K/mm3 Lymph # 2.3 2.8 (1.2-5.4) K/mm3 [place] # 0.9 H 0.9 H (0.0-0.8) K/mm3 Eos # 0.2 0.2 (0.0-0.4) K/mm3 Baso # 0.1 0.2 H (0.0-0.1) K/mm3 Comprehensive Metabolic Panel 08/04/19 08/05/19 Range/Units 00:05 04:06 Sodium 138 137 (137-145) mmol/L Potassium 3.5 L 3.3 L (3.6-5.0) mmol/L Chloride 99.1 97.0 L (98-107) mmol/L Carbon Dioxide 22 23 (22-30) mmol/L BUN 11 9 (7-17) mg/dL Creatinine 0.8 0.8 (0.7-1.2) mg/dL Glucose 137 H 123 H (65-100) mg/dL Calcium 9.1 9.1 (8.4-10.2) mg/dL AST 22 (5-40) units/L ALT 12 (7-56) units/L Alkaline Phosphatase 59 (35-129) units/L Total Protein 8.4 H (6.3-8.2) g/dL Albumin 4.4 (3.9-5) g/dL - Imaging and Cardiology Echo: report reviewed (08/05/2019: EF 55-60%, trace ND) EKG: report reviewed, image reviewed - EKG Interpretation EKG: no acute changes EKG interpretations - Telemetry EKG Rhythm: Sinus Rhythm - EKG Sinus rhythms and dysrhythmias: sinus rhythm Repolarization changes or abnormalities: Q-T interval prolongation Assessment and Plan ACS ruled out. Stress test 08/05/2019 - negative for ischemia. Echo findings noted - 08/05/2019: EF 55-60%, trace ND. Per pt's daughter, pt is on HCTZ as OP. BP optimization with ARB per Primary. Cont ASA and statin. Neuro recs noted. Currently stable cardiac status. Pt may be discharged from a Cardiology standpoint. Recommend f/u with Primary/Cardiology ([facility]) within 1-2 weeks of discharge. Pt seen in conjunction with Dr. Méndez, who agrees with the assessment and plan of care. - Patient Problems (1) Chest pain Current Visit: Yes Status: Acute (2) Hypertensive urgency Current Visit: Yes Status: Resolved (3) Numbness and tingling of upper extremity Current Visit: Yes Status: Acute (4) HLD (hyperlipidemia) Current Visit: Yes Status: Chronic Qualifiers: Hyperlipidemia type: mixed hyperlipidemia Qualified Code(s): E78.2 - Mixed hyperlipidemia (5) GERD (gastroesophageal reflux disease) Current Visit: Yes Status: Chronic
[2019-08-05] MEDS ORDERED: POTASSIUM CHLORIDE ER 20 MEQ TAB PO ONE ×2 (11:00→18:15)
[2019-08-05 11:40] LABS: Chol/HDL Ratio 4.34 %
[2019-08-05 12:44] VITALS: BP 105/68
[2019-08-05] MEDS ORDERED: VALSARTAN 40 MG TAB PO SCH (13:00)
--- NOTE | 2019-08-05 13:31 | Discharge Summary ---
Providers - Providers Date of Admission: 08/05/19 02:33 Attending physician: PARTH CHAVEZ MD 08/05/19 Consult to Cardiac Rehabilitation [CONS] Routine Reason For Exam: Phase I 08/05/19 02:52 Consult to Cardiology [CONS] Routine Consulting Provider: RADHA JOHANSEN Reason For Exam: CHEST PAIN Consult to Dietitian/Nutrition [CONS] Routine Physician Instructions: Reason For Exam: Reason for Consult: Nutrition Recommendations Reason for Consult: Diet education Consult to Physician [CONS] Routine Comment: Consulting Provider: JOVAN WALTER Physician Instructions: Reason For Exam: R/O CVA Occupational Therapy Evaluate and Treat [CONS] Routine Comment: Reason For Exam: Neuro deficits Physical Therapy Evaluation and Treat [CONS] Routine Comment: Reason For Exam: Neuro deficits Primary care physician: [employer] Hospitalization Reason for admission: Chest pain, generalized weakness Condition: Stable Hospital course: 49-year-old female with known history of hypertension and GERD presenting to the emergency room today complaining of generalized weakness and chest pain. Generalized weakness is more in the upper extremities, she has also been having some tingling and numbness. He had gone to an urgent care facility and was referred to the emergency room for evaluation because her blood pressure was quite elevated. Upon arrival here in the emergency room she was found to be globally weak and could not lift her extremities and also required assistance holding a phone. Her weakness was said to have improved gradually while in the emergency room and was able to walk without any significant difficulty. There has been no history of fall and no history of syncopal episode. Patient denies any fever or chills, no nausea vomiting, no shortness of breath, no hematuria or dysuria. She has been having chest pain in the midsternal area with some associated left shoulder pain. Patient was evaluated by the teleneurologist. Work-up so far has been unremarkable. CTA reveals atherosclerotic disease. Patient is to have full work- up for CVA and a chest pain. Neurologist also recommends permissive hypertension. Blood pressure medications were adjusted as the daughter informs us that the patient's that the patient becomes markedly lethargic when the blood pressure is high despite being compliant with her blood pressure medication. Discussed with cardiology we will add additional meds and discharge patient will be followed with cardiology outpatient for blood pressure check. Final diagnosis is Cardiology evaluated the patient and then by the recommendation ACS ruled out. Stress test 08/05/2019 - negative for ischemia. Echo findings noted - 08/05/2019: EF 55-60%, trace OH. Per pt's daughter, pt is on HCTZ as OP. BP optimization with ARB per Primary. Cont ASA and statin. Neuro recs noted. Currently stable cardiac status. Pt may be discharged from a Cardiology standpoint. Recommend f/u with Primary/Cardiology ([facility]) within 1-2 weeks of discharge. Pt seen in conjunction with Dr. Méndez, who agrees with the assessment and plan of care. - Patient Problems (1) Chest pain secondary to hypertensive urgency Current Visit: Yes Status: Acute (2) Hypertensive urgency Current Visit: Yes Status: Resolved (3) Numbness and tingling of upper extremity Current Visit: Yes Status: Acute (4) HLD (hyperlipidemia) Current Visit: Yes Status: Chronic Qualifiers: Hyperlipidemia type: mixed hyperlipidemia Qualified Code(s): E78.2 - Mixed hyperlipidemia (5) GERD (gastroesophageal reflux disease) Current Visit: Yes Status: Chronic [6] Hypertensive encephalopathy CVA was ruled out. Disposition: DC- TO HOME OR SELFCARE Time spent for discharge: 35-minute Core Measure Documentation - Palliative Care Palliative Care/ Comfort Measures: Not Applicable - Core Measures Any of the following diagnoses?: none Exam - Physical Exam Narrative exam: VITAL SIGNS: Reviewed. GENERAL: The patient appears normally developed, Vital signs as documented. HEAD: No signs of head trauma. EYES: Pupils are equal. Extraocular motions intact. EARS: Hearing grossly intact. MOUTH: Oropharynx is normal. NECK: No adenopathy, no JVD. CHEST: Chest with clear breath sounds bilaterally. No wheezes, rales, or rhonchi. CARDIAC: Regular rate and rhythm. S1 and S2, without murmurs, gallops, or rubs. VASCULAR: No Edema. Peripheral pulses normal and equal in all extremities. ABDOMEN: Soft, non tender and non distended. No rebound or guarding, and no masses palpated. Bowel Sounds normal. MUSCULOSKELETAL: Good range of motion of all major joints. Extremities without clubbing, cyanosis or edema. NEUROLOGIC EXAM: Alert and oriented x 3 No focal sensory or strength deficits. Speech normal. Follows commands. PSYCHIATRIC: Mood normal. SKIN: detial exam as documented in skin assessment - Constitutional Vitals: Temp Pulse Resp BP Pulse Ox 98.0 F 64 20 105/68 98 08/05/19 07:08 08/05/19 07:08 08/05/19 07:08 08/05/19 12:10 08/05/19 07:55 Plan Activity: advance as tolerated, fall precautions Diet: low fat Special Instructions: record daily weights, record daily BP diary Follow up with: PRIMARY CARE, [Primary Care Provider] - 3-5 Days PEG MÉNDEZ MD [Staff Physician] - 7 Days Prescriptions: AtorvaSTATin [Lipitor] 40 mg PO QHS #30 tablet Aspirin [Adult Aspirin] 81 mg PO DAILY #30 tablet. Valsartan [Diovan] 40 mg PO DAILY #30 tablet hydroCHLOROthiazide [HCTZ] 25 mg PO QDAY #30 tablet
--- NOTE | 2019-08-05 15:01 | Magnetic Resonance Report ---
MRA HEAD WITHOUT CONTRAST HISTORY: Right-sided weakness. COMPARISON: CTA head 08/05/2019 at 0040 hours. TECHNIQUE: Routine MRA of the head performed. 3-D/MIP reformats postprocessed. CONTRAST: none FINDINGS: MRA HEAD: OVERVIEW: Intercranial stenosis is observed at the distal M1 segment of the right middle cerebral art dary. There is no evidence large vessel occlusion. There is no evidence of aneurysm or other vascular malformation. Intracranial vertebral arteries: Balanced vertebral arteries both contribute to the basilar artery or igin. Basilar artery: Basilar artery has an unremarkable appearance. Posterior cerebral arteries: Bilaterally symmetrical posterior cerebral arteries are demonstrated. Intracranial internal carotid arteries: No indication of stenosis. Anterior cerebral arteries: A1 segments are bilaterally symmetrical. A too segments have a normal jovan earance. Pericallosal are largely excluded on this examination. Middle cerebral arteries: There is evidence of moderate stenosis of the distal M1 segment of the righ t middle cerebral artery. A similar finding was present on recent CTPA. The degree of stenosis appear s to be overestimated on the 3-D reconstructions. Based on recent CTA the degree of stenosis appears to be on the order of 50% which is consistent with findings on source images of this MRA head examina tion. No abnormalities are seen along the insular or opercular branches of the right middle cerebral artery. M1 segment of the left middle cerebral artery has an unremarkable appearance as do the insula r and opercular branches. Additional findings: None. IMPRESSION: 1. Moderate stenosis distal M1 segment right middle cerebral artery. Similar findings were described on CTA head also dated 08/05/2019. Signer Name: Chun Deleon MD Signed: 08/05/2019 2:56 PM Workstation Name: [email or web address]
--- NOTE | 2019-08-05 15:06 | Magnetic Resonance Report ---
MRI BRAIN WITHOUT CONTRAST INDICATION / CLINICAL INFORMATION: Cerebrovascular accident. Hypertension, right side weakness. TECHNIQUE: Multiplanar, multisequence MR images of the brain were obtained. COMPARISON: Head CT 08/04/2019 FINDINGS: BRAIN / INTRACRANIAL CONTENTS: Ventricles and cortical sulci are normal in size and configuration. Th ere is no mass effect. No evidence of intracranial hemorrhage or extra-axial fluid collection is seen . Mildly dilated perivascular spaces are present adjacent to the lateral margins of the anterior comm issure bilaterally. No significant areas of abnormal brain parenchymal signal intensity are identifie d. There is no indication of remote cortical infarction. Diffusion weighted scans are negative. There is no indication of acute ischemic injury. The brainstem and cerebellum have an unremarkable appearance. CRANIOCERVICAL JUNCTION: No abnormalities are identified at the craniocervical junction. VASCULAR FLOW-VOIDS: Normal flow-voids are present within the major intracranial vessels. ORBITS: The orbits have an unremarkable appearance. SINUSES / MASTOIDS: [Mild inflammatory] mucosal changes are seen in the ethmoid air cells, right wors e than left. Mild mucosal disease is present in the right frontal sinus. Several millimeters of mucos al thickening are present at the base of the maxillary sinuses. Mucosal thickening is also observed i n the right sphenoid sinus. Normal pneumatization of the mastoid air cells is observed bilaterally. ADDITIONAL FINDINGS: None. IMPRESSION: 1. No intracranial abnormalities are identified on MRI brain without contrast. 2. Pansinus inflammatory mucosal disease. Signer Name: Chun Deleon MD Signed: 08/05/2019 3:02 PM Workstation Name: [email or web address]
--- NOTE | 2019-08-05 15:15 | Vascular Lab Report ---
Bilateral Carotid Doppler Ultrasound INDICATION : stroke TECHNIQUE: Grayscale and color Doppler imaging performed through the neck. COMPARISON: None FINDINGS: Right: There is no significant atherosclerotic disease. Peak systolic velocity in the CCA is 102 cm /s with end-diastolic velocity of 39 cm/s. Peak systolic velocity in the proximal ICA is 103 cm/s wit h end-diastolic velocity of 48 cm/s. ICA to CCA ratio is less than 2. There is antegrade flow in the ECA and the vertebral artery. Left: There is no significant atherosclerotic disease. Peak systolic velocity in the CCA is 113 cm/s with end-diastolic velocity of 36 cm/s. Peak systolic velocity in the proximal ICA is 112 cm/s with e nd-diastolic velocity of 53 cm/s. ICA to CCA ratio is less than 2. There is antegrade flow in the EC A and the vertebral artery. IMPRESSION: No hemodynamically significant stenosis by NASCET criteria. Signer Name: Aj De La Cruz MD Signed: 08/05/2019 3:10 PM Workstation Name: [id number]
--- NOTE | 2019-08-05 19:17 | Treadmill Report ---
NUCLEAR PERFUSION STUDY REASON FOR STUDY: Chest pain. READING PHYSICIAN: Dr. Méndez. IMAGING PROTOCOL: Single isotope used documented as single isotope protocol. IMAGING RESULTS: Normal cavity size from stress to rest. Normal distribution of radionuclide in the anterior, inferior, septal, and apical regions. Gated SPECT, EF greater than 65%. The patient infused Lexiscan with no EKG changes. SUMMARY: 1. Negative Lexiscan EKG. 2. Normal rest and stress myocardial perfusion scan. No significant ischemia. No wall motion abnormality. Gated SPECT, EF greater than 65%. JOB# [id number] MORENA/NTS
[2019-08-06] MEDS ORDERED: ASPIRIN EC 325 MG TAB PO SCH (10:00)
== END 2019-08-05 18:51 | disposition home or self-care (01) ==
LOC: ED 23:20 → INTOOBSV 08-05 02:33 → 4A 08-05 02:33
PROVIDERS: ADMIT Internal Medicine Geriatric Medicine; ATTEND Internal Medicine
DX: I16.0 Hypertensive urgency (principal); R07.89 Other chest pain; R53.1 Weakness; K21.9 Gastro-esophageal reflux disease without esophagitis; E78.5 Hyperlipidemia, unspecified; R20.0 Anesthesia of skin; Z79.82 Long term (current) use of aspirin; Z79.899 Other long term (current) drug therapy
CPT/HCPCS: 36415; 70450; 70496; 70498; 70544; 70551; 71045; 78452; 80048; 80053; 80061; 80307; 81001; 82550; 82553; 82962; 83735; 84439; 84443; 84484; 85025; 85610; 85670; 85730; 93005; 93017; 93306; 93880; 96372; 96374; 96375; 96376; 99285; A9502; G0378; J0360; J1644; J2270; J2785; Q9967; 80320; G0480